=== PATIENT | male | born 1965 | race Caucasian/White ===

== ENCOUNTER 2024-12-29 17:45 | Emergency (ER) | payer OTHER, SELFPAY ==
--- NOTE | 2024-12-29 17:55 | ED_ITS ---
HPI - Male Genitourinary General Chief complaint: Urogenital-Male Stated complaint: sti screening Time Seen by Provider: 12/29/24 17:55 Source: patient and RN notes reviewed Mode of arrival: ambulatory Limitations: no limitations History of Present Illness HPI Narrative: 59-year-old male with a history of diabetes and hypertension presented for labs/ syphilis testing. States he has had loss of vision from syphilis in the past, and says he had no warning symptoms prior to the vision loss. He recalls having some joint pain at the time, and admits to having joint pain for about 1-2 days earlier this week. Patient denies penile discharge or skin lesions, rash, malaise, n/v/d/f/c. Pt is pathology laboratory technologist passing through and plans to f/u with his pcp in January. Related Data Allergies Allergy/AdvReac Type Severity Reaction Status Date / Time No Known Allergies Allergy Verified 12/29/24 18:09 Review of Systems Review of Systems: CONSTITUTIONAL: Denies body aches, fever, chills, or sweats. CARDIOVASCULAR: Denies chest pain, palpitations, or edema. RESPIRATORY: Denies cough or dyspnea. GASTROINTESTINAL: Denies abdominal pain, nausea, vomiting, or diarrhea. GENITOURINARY: denies discharge, lesions, dysuria, frequency, urgency, hematuria, flank pain SKIN: Denies rash, itching, or wounds. MUSCULOSKELETAL: Denies back pain or myalgia. [facility] Past Medical History Medical History (Updated 12/29/24 @ 18:22 by Princess Murphy APRN) HTN (hypertension) Diabetes Social History Social History (Updated 12/29/24 @ 18:22 by Princess Murphy APRN) Smoking packs per day: 1 Smoking cigarettes per day: 20.0 Smoking status: Current every day smoker Comments At time of signature, I have reviewed and agree with nursing past medical, surgical, social and family history unless otherwise noted. Please see nursing chart for further information. There is no relevant family history pertinent to the presenting complaint Exam Narrative: GENERAL: Well-appearing ENT: Mucous membranes pink and moist. NECK: Normal AROM. Supple. CHEST: No respiratory distress. Clear to auscultation. HEART: Regular rate and rhythm. : pt declined exam stating he has no lesions SKIN: Warm, dry, no rash. NEURO: No focal deficits. Alert and oriented x3. Gait steady. PSYCH: Normal affect. Course Course Emergency Course: Patient is aware of diagnosis, understands and agrees to treatment plan. Anticipatory guidance given. Patient agrees to follow-up as directed and is aware of reasons to seek care at the emergency department. Portions of this record may have been created with voice recognition software Level of Care: Express Care Visit Vital Signs Vital signs: Vital Signs Temperature 97.8 F 12/29/24 18:02 Pulse Rate 80 12/29/24 18:02 Respiratory Rate 18 12/29/24 18:02 Blood Pressure 139/80 12/29/24 18:02 Pulse Oximetry 98 12/29/24 18:02 Oxygen Delivery Room Air 12/29/24 18:02 Temperature 97.8 F 12/29/24 18:02 Pulse Rate 80 12/29/24 18:02 Respiratory Rate 18 12/29/24 18:02 Blood Pressure 139/80 12/29/24 18:02 Pulse Oximetry 98 12/29/24 18:02 Oxygen Delivery Room Air 12/29/24 18:02 Reviewed MDM - Male Genitourinary MDM Narrative Medical decision making narrative: Patient presented requesting blood work for syphilis and is aware he will need to f/u with his pcp for blood testing. 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 Will send abx at this time. Discussed at length the risk of other std's and offered testing for GC, chlamydia and trich, he declines any testing at this time. Discussed physical exam findings. Advised supportive measures and signs/symptoms to go to the ER. Pt is appropriate for outpt treatment and f/u. Differential Diagnosis Differential diagnosis: Likely other (std) Discharge Plan Discharge Clinical Impression: Concern about STD in male without diagnosis Patient Disposition: Home, Self-Care Condition: Stable Instructions: Antibiotic Form, Sexually Transmitted Diseases (ED), Safe Sex Practices (ED) Additional Instructions: Take the antibiotic as directed you will need to notify any partners that you have so they can be tested and treated. To avoid reinfection, you are advised to abstain from sexual intercourse until you and sex partners have been treated please follow-up with your PCP Go to the ER for worsening symptoms or concerns Patient Language: Malay Prescriptions: New doxycycline hyclate 100 mg tablet 100 mg PO BID 14 Days Qty: 28 0RF Follow-up/Referrals: PHYSICIAN NOT ON STAFF,NONSTAFF [Primary Care Provider] - Time of Disposition: 18:19
[2024-12-29 18:02] VITALS: BP 139/80; PULSE 80; RESP 18; TEMP 36.6; O2SAT 98
== END 2024-12-29 18:19 | disposition home or self-care (01) ==
PROVIDERS: Emergency Provider Nurse Practitioner Family
DX: Z20.2 Contact with and (suspected) exposure to infections with a predominantly sexual mode of transmission (principal); F17.210 Nicotine dependence, cigarettes, uncomplicated; I10 Essential (primary) hypertension; E11.9 Type 2 diabetes mellitus without complications
CPT/HCPCS: 99203; G0463